=== PATIENT | female | born 1975 | race Caucasian/White ===

== ENCOUNTER 2024-09-19 10:52 | Emergency (ER) | payer BC ==
[2024-09-19] MEDS: Ondansetron 4 MG Tab.DIS PO ONE (11:23)
[2024-09-19] MEDS: Acetaminophen/oxyCODONE 325-10 MG Tab PO ONE (11:23)
== END 2024-09-19 12:26 | disposition home or self-care (01) ==
LOC: MW.ED 10:52
DX: M54.50 Low back pain, unspecified (principal); I10 Essential (primary) hypertension; K21.9 Gastro-esophageal reflux disease without esophagitis; F17.210 Nicotine dependence, cigarettes, uncomplicated; Z75.3 Unavailability and inaccessibility of health-care facilities; Z88.0 Allergy status to penicillin; Z79.899 Other long term (current) drug therapy
CPT/HCPCS: 72131; 99283; A9270